=== PATIENT | female | born 1990 | race Caucasian/White ===

== ENCOUNTER 2018-07-21 09:18 | Emergency (ER) | payer OTHER ==
[2018-07-21 09:36] LABS: PH,URINE 8.5 (4.5-8); URINE APPEARANCE Slightly; URINE BILIRUBIN Negative (NEGATIVE); URINE COLOR Yellow; URINE GLUCOSE (UA) Negative (NEGATIVE); URINE KETONE Negative (NEGATIVE); URINE LEUK ESTERASE 2+ (NEGATIVE); URINE NITRITE Negative (NEGATIVE); URINE PROTEIN Negative (NEGATIVE); URINE UROBILINOGEN 0.2 (0.2-1.0)
[2018-07-21 09:40] VITALS: TEMP 97.9
[2018-07-21] MEDS ORDERED: SODIUM CHLORIDE 1,000 ML IV STA (09:44)
[2018-07-21] MEDS ORDERED: KETOROLAC TROMETHAMINE 30 MG/1 ML VIAL IVPUSH ONE (09:44)
[2018-07-21 09:51] LABS: HCG,QUALITATIVE URINE NEGATIVE
--- NOTE | 2018-07-21 09:53 | PDOC ---
History of Present Illness - General Chief Complaint: Back Pain Stated Complaint: lower back pain Time Seen by Provider: 07/21/18 09:23 History Source: Patient Exam Limitations: No Limitations - History of Present Illness Initial Comments: 07/21/18 09:49 27 year old female c/ hx of renal stones presents with Left flank pain since yesterday morning. Noted to have woken up with this intermittent colicky pain in left flank. Associated with urge to urine but denies hematuria, dysuria, urinary frequency. No fevers, chills, nausea, vomiting, diarrhea. Denies vaginal bleeding or discharge. States has not had a period for 6 months given her depo injection. States feels like her previous renal colic. Past History - Past Medical History Allergies/Adverse Reactions: Allergies Allergy/AdvReac Type Severity Reaction Status Date / Time No Known Allergies Allergy Verified 07/21/18 09:19 Home Medications: Ambulatory Orders Naproxen 500 mg PO BID PRN #20 tablet 07/21/18 Tamsulosin HCl [Flomax] 0.4 mg PO DAILY #10 cap.er.24h 07/21/18 COPD: No Other medical history: pt denies - Suicide/Smoking/Psychosocial Hx Smoking History: Never smoked Hx Alcohol Use: No Drug/Substance Use Hx: No Review of Systems - Review of Systems Able to Perform ROS?: Yes Comments:: 07/21/18 09:51 GENERAL/CONSTITUTIONAL: [No fever or chills. No weakness. No weight change.] HEAD, EYES, EARS, NOSE AND THROAT: [No change in vision. No ear pain or discharge. No sore throat.] CARDIOVASCULAR: [No chest pain or shortness of breath.] RESPIRATORY: [No cough, wheezing, or hemoptysis.] GASTROINTESTINAL: [No nausea, vomiting, diarrhea or constipation. No rectal bleeding.] + Left flank pain. GENITOURINARY: [No dysuria, frequency, or change in urination.] MUSCULOSKELETAL: [No joint or muscle swelling or pain. No neck or back pain.] SKIN AND BREASTS: [No rash or easy bruising.] NEUROLOGIC: [No headache, vertigo, loss of consciousness, or loss of sensation.] PSYCHIATRIC: [No depression or anxiety.] ENDOCRINE: [No increased thirst. No abnormal weight change.] HEMATOLOGIC/LYMPHATIC: [No anemia, easy bleeding, or history of blood clots.] ALLERGIC/IMMUNOLOGIC: [No hives or skin allergy. No latex allergy.] *Physical Exam - Vital Signs Last Vital Signs Temp Pulse Resp BP Pulse Ox 97.9 F 78 18 112/78 100 07/21/18 09:19 07/21/18 09:19 07/21/18 09:19 07/21/18 09:19 07/21/18 09:19 - Physical Exam Comments: 07/21/18 09:52 GENERAL: Awake, alert, and fully oriented, in no acute distress HEAD: No signs of trauma EYES: EOMI, sclera anicteric, conjunctiva clear ENT: Auricles normal inspection, hearing grossly normal, nares patent NECK: Normal ROM, supple ABDOMEN: Soft, No guarding, no rebound. No masses. nontender abdomen. + left sided CVA tenderness. EXTREMITIES: Normal range of motion, no edema. No clubbing or cyanosis. No cords, erythema, or tenderness NEUROLOGICAL: Cranial nerves II through XII grossly intact. Normal speech, normal gait SKIN: Warm, Dry, normal turgor, no rashes or lesions noted. Moderate Sedation - Procedure Monitoring Vital Signs: Procedure Monitoring Vital Signs Temperature 97.9 F 07/21/18 09:19 Pulse Rate 78 07/21/18 09:19 Respiratory Rate 18 07/21/18 09:19 Blood Pressure 112/78 07/21/18 09:19 O2 Sat by Pulse Oximetry (%) 100 07/21/18 09:19 ED Treatment Course - LABORATORY CBC & Chemistry Diagram: 07/21/18 09:56 07/21/18 10:45 - ADDITIONAL ORDERS Additional order review: Laboratory Results 07/21/18 09:27 Urine Color Yellow Urine Appearance Slightly Urine pH 8.5 H Ur Specific [place] 1.020 Urine Protein Negative Urine Glucose (UA) Negative Urine Ketones Negative Urine Blood 2+ H Urine Nitrite Negative Urine Bilirubin Negative Urine Urobilinogen 0.2 Ur Leukocyte Esterase 2+ H - RADIOLOGY Radiology Studies Ordered: Category Date Time Status SPIRAL- RENAL-STONE CT [CT] Stat CT Scan 07/21/18 09:48 Ordered Medical Decision Making - Medical Decision Making 07/21/18 09:53 Vital Signs Temp Pulse Resp BP Pulse Ox 97.9 F 78 18 112/78 100 07/21/18 09:19 07/21/18 09:19 07/21/18 09:19 07/21/18 09:19 07/21/18 09:19 Differential: pyelonephritis vs. renal colic. Labs including CBC, CMP, UA/UC, urine test. Spiral CT to r/o kidney stones. NSAIDS, IVF, and reassess. 07/21/18 11:38 CBC, BMP 07/21/18 09:56 07/21/18 10:45 CMP Sodium 139 mmol/L (136-145) 07/21/18 10:45 Potassium 3.6 mmol/L (3.5-5.1) 07/21/18 10:45 Chloride 108 mmol/L (98-107) H 07/21/18 10:45 Carbon Dioxide 25 mmol/L (21-32) 07/21/18 10:45 Anion Gap 6 MMOL/L (8-16) L 07/21/18 10:45 BUN 18 mg/dl (7-18) 07/21/18 10:45 Creatinine 0.6 mg/dl (0.55-1.3) 07/21/18 10:45 Creat Clearance w eGFR > 60 (>60) 07/21/18 10:45 Random Glucose 83 mg/dl (74-106) 07/21/18 10:45 Calcium 8.5 mg/dl (8.5-10) 07/21/18 10:45 Total Bilirubin 0.5 mg/dl (0.2-1) 07/21/18 10:45 AST 20 U/L (15-37) 07/21/18 10:45 ALT 18 U/L (13-61) 07/21/18 10:45 Alkaline Phosphatase 77 U/L (45-117) 07/21/18 10:45 Total Protein 6.5 g/dl (6.4-8.2) 07/21/18 10:45 Albumin 3.6 g/dl (3.4-5.0) 07/21/18 10:45 UA positive for 2+ leuk est, but also with epithelial cells, 20-40 RBCs, 40-[address] demonstrates a 3 mm partially obstructing L renal stone with some mild hydronephrosis. At this time, I don't think that this is an infected renal stone. The patient has no fever, insists that she has no symptoms of UTI. And given no serum elevated WBC and with epithelial cells in urine, I'm inclined to feel that this is renal colic and NOT infected renal stone. Case discussed with Dr. Bazan, who thought that this was reasonable. Will have the patient follow up in his office. Return precautions given i.e. patient develops fever. I discussed the physical exam findings, ancillary test results and final diagnoses with the patient. I answered all of the patient's questions. The patient was satisfied with the care received and felt comfortable with the discharge plan and treatment plan. The patient will call their primary care physician within 24 hours to arrange follow-up and will return to the Emergency Department with any new, persistant or worsening symptoms. *DC/Admit/Observation/Transfer Diagnosis at time of Disposition: Renal colic on left side - Discharge Dispostion Disposition: HOME Condition at time of disposition: Stable Decision to Admit order: No - Prescriptions Prescriptions: Naproxen 500 mg PO BID PRN #20 tablet PRN Reason: Pain Tamsulosin HCl [Flomax] 0.4 mg PO DAILY #10 cap.er.24h - Referrals Referrals: Nigel Bazan MD [Staff Physician] - - Patient Instructions Printed Discharge Instructions: DI for Kidney Stones Additional Instructions: You have a small 3mm kidney stone in the left side. It is in the process of moving. It may take several days before the process is complete. For pain control, take 500 mg naproxen every 12 hours as needed. Please take the flomax daily to help push out the kidney stone. Drink plenty of fluids and rest. Make an appointment with the urologist within the next 2 weeks. If you develop a fever, please return to the ER. - Post Discharge Activity
[2018-07-21] MEDS ORDERED: KETOROLAC TROMETHAMINE 30 MG/1 ML VIAL ONE (09:59)
[2018-07-21 10:10] LABS: HEMATOCRIT 45.2 % (32.4-45.2); HEMOGLOBIN 14.5 GM/dl (10.7-15.3); MCH 29.4 pg (25.7-33.7); MEAN CELL VOLUME 91.8 fl (80-96); MEAN PLT VOLUME 8.6 fl (7.5-11.1); PLATELET COUNT 294 K/MM3 (134-434); RBC 4.93 M/mm3 (3.60-5.2); WHITE BLOOD COUNT 4.7 K/mm3 (4.0-10.8)
[2018-07-21 10:19] LABS: EPI CELLS 4+ /HPF; TRIPLE PHOSPHATE CRYSTAL MODERATE /hpf (NONE SEEN); URINE BACTERIA FEW /hpf (NEGATIVE); URINE RBC 20-40 /hpf (0-3); URINE WBC 40-60 (0-5)
[2018-07-21 11:09] LABS: PLATELET ESTIMATE ADEQUATE
[2018-07-21 11:12] LABS: ALBUMIN 3.6 g/dl (3.4-5.0); ALK PHOS 77 U/L (45-117); ANION GAP 6 MMOL/L (8-16); BILIRUBIN,TOTAL 0.5 mg/dl (0.2-1); BLOOD UREA NITROGEN 18 mg/dl (7-18); CALCIUM 8.5 mg/dl (8.5-10); CHLORIDE 108 mmol/L (98-107); CO2 25 mmol/L (21-32); CREATININE 0.6 mg/dl (0.55-1.3); GLUCOSE,RANDOM 83 mg/dl (74-106); POTASSIUM 3.6 mmol/L (3.5-5.1); SGOT/AST 20 U/L (15-37); SGPT/ALT 18 U/L (13-61); SODIUM 139 mmol/L (136-145); TOT PROT 6.5 g/dl (6.4-8.2)
[2018-07-21] MEDS ORDERED: TAMSULOSIN HCL 0.4 MG CAP PO ONE (11:45)
[2018-07-21] MEDS ORDERED: TAMSULOSIN HCL 0.4 MG CAP ONE (11:51)
[2018-07-21 12:10] VITALS: BP 106/64; PULSE 66
== END 2018-07-21 12:08 | disposition home or self-care (01) ==
LOC: FER 09:18
PROC: 3E0337Z Introduction of Electrolytic and Water Balance Substance into Peripheral Vein, Percutaneous Approach (ICD-10-PCS; principal; 2018-07-21)
PROC: 3E0337Z Introduction of Electrolytic and Water Balance Substance into Peripheral Vein, Percutaneous Approach (ICD-10-PCS; 2018-07-21)
DX: N13.2 Hydronephrosis with renal and ureteral calculous obstruction (principal)
CPT/HCPCS: 36415; 74176; 80053; 81003; 81015; 84703; 85025; 87086; 99282-25; J7030

== ENCOUNTER 2020-07-08 14:37 | Emergency (ER) | payer OTHER | END 2020-07-08 15:13 | disposition home or self-care (01) | LOC: JVIRT 14:37 | DX: Z20.822 Contact with and (suspected) exposure to COVID-19 (principal) | CPT/HCPCS: C9803; G2012-GT; U0003 ==

== ENCOUNTER 2024-01-02 17:45 | Inpatient (IN) | payer OTHER ==
[2024-01-02 18:27] VITALS: BMI 28.3
[2024-01-02 19:11] LABS: BASO % 0.4 % (0-2.0); EOS % 0.7 % (0-4.5); HEMATOCRIT 34.7 % (32.4-45.2); HEMOGLOBIN 11.6 GM/dL (10.7-15.3); LYMPH % 28.4 % (8-40); MCH 29.3 pg (25.7-33.7); MCHC 33.3 g/dl (32.0-36.0); MEAN CELL VOLUME 87.9 fl (80-96); MEAN PLT VOLUME 8.4 fl (7.5-11.1); MONO % 6.1 % (3.8-10.2); NEUT % 64.4 % (42.8-82.8); PLATELET COUNT 251 10^3/uL (134-434); RBC 3.95 M/mm3 (3.60-5.2); RDW 14.9 % (11.6-15.6); WHITE BLOOD COUNT 8.4 K/mm3 (4.0-10.0)
[2024-01-02 19:26] LABS: POTASSIUM 3.9 mmol/L (3.5-5.1)
[2024-01-02 19:27] LABS: BLOOD UREA NITROGEN 6.8 mg/dL (7-18); CALCIUM 8.7 mg/dL (8.5-10.1)
[2024-01-02 19:30] LABS: CREATININE 0.7 mg/dL (0.55-1.3)
[2024-01-02] MEDS: ELECTROLYTE-148 SOLN 1,000 ML IV SCH (19:30)
[2024-01-02] MEDS: MISOPROSTOL 25 MCG TABLET (COMPOUNDED BY PHARMACY) PV ONE (19:55)
[2024-01-02 20:09] LABS: ACTIVATED PTT 26.1 SECONDS (25.2-36.5)
[2024-01-02 20:21] LABS: INR 0.95 (0.83-1.09); PROTHROMBIN TIME (PATIENT) 10.7 SEC (9.7-13.0)
[2024-01-03] MEDS: ELECTROLYTE-148 SOLN 1,000 ML IV SCH
[2024-01-03] MEDS: MISOPROSTOL 25 MCG TABLET (COMPOUNDED BY PHARMACY) BUC ONE (00:20)
[2024-01-03] MEDS: OXYTOCIN 30 UNITS in 0.9% NS 30 UNIT/500 ML INFUS.BAG IVPB SCH (10:00)
[2024-01-03] MEDS ORDERED: BUPIVACAINE HCL/PF 0.25% (2.5MG/ML) 10 ML VIAL ONE (11:00)
[2024-01-03] MEDS ORDERED: FENTANYL/BUPIVACAINE/NS/PF - PCEA - 50 ML DISP.SYRIN EP ONE (11:00)
[2024-01-03] MEDS: FENTANYL/BUPIVACAINE/NS/PF - PCEA - 50 ML DISP.SYRIN EP SCH ×2 (11:15→14:06)
[2024-01-03] MEDS ORDERED: NALOXONE HCL 0.4 MG/ML VIAL IVPUSH PRN (11:32)
[2024-01-03 12:08] LABS: INR 0.94 (0.83-1.09); PROTHROMBIN TIME (PATIENT) 10.8 SEC (9.7-13.0)
[2024-01-03 12:09] LABS: BASO % 0.6 % (0-2.0); EOS % 0.6 % (0-4.5); HEMATOCRIT 34.5 % (32.4-45.2); HEMOGLOBIN 11.4 GM/dL (10.7-15.3); LYMPH % 26.5 % (8-40); MCH 29.1 pg (25.7-33.7); MCHC 33.1 g/dl (32.0-36.0); MEAN CELL VOLUME 87.9 fl (80-96); MEAN PLT VOLUME 8.9 fl (7.5-11.1); MONO % 6.8 % (3.8-10.2); NEUT % 65.5 % (42.8-82.8); PLATELET COUNT 235 10^3/uL (134-434); RBC 3.92 M/mm3 (3.60-5.2); RDW 14.6 % (11.6-15.6); WHITE BLOOD COUNT 9.1 K/mm3 (4.0-10.0)
[2024-01-03 12:11] LABS: ACTIVATED PTT 23.8 SECONDS (25.2-36.5)
[2024-01-03 12:24] LABS: POTASSIUM 3.9 mmol/L (3.5-5.1)
[2024-01-03 12:29] LABS: CALCIUM 7.9 mg/dL (8.5-10.1)
[2024-01-03 12:30] LABS: BLOOD UREA NITROGEN 4.3 mg/dL (7-18)
[2024-01-03 12:33] LABS: CREATININE 0.4 mg/dL (0.55-1.3)
[2024-01-03] MEDS ORDERED: BISACODYL 10 MG SUPP.RECT RC PRN (13:42)
[2024-01-03] MEDS ORDERED: ACETAMINOPHEN 325 MG TABLET (FP) PO PRN (13:42)
[2024-01-03] MEDS ORDERED: WITCH HAZEL 50% (TUCKS) 40 PAD/JAR PAD TP PRN (13:42)
[2024-01-03] MEDS ORDERED: BENZOCAINE 20% 57 GM BOTTLE TP PRN (13:42)
[2024-01-03] MEDS ORDERED: METHYLERGONOVINE MALEATE 0.2 MG/1 ML AMP IM PRN (13:42)
[2024-01-03] MEDS ORDERED: BENZOCAINE 28 GM HEMORRHOIDAL OINTMENT TP PRN (13:42)
[2024-01-03] MEDS: OXYTOCIN 20 UNITS in 0.9% NS 20 UNIT/1,000 ML INFUS.BAG IV SCH (13:50)
[2024-01-03] MEDS ORDERED: IBUPROFEN 600 MG TABLET (FP) PO ONE (15:08)
[2024-01-03] MEDS: IBUPROFEN 600 MG TABLET (FP) PO PRN (15:10)
[2024-01-03 16:10] VITALS: RESP 18
[2024-01-03] MEDS: oxyCODONE HCL 5 MG TABLET PO PRN (22:18)
[2024-01-04 08:40] LABS: BASO % 0.4 % (0-2.0); EOS % 1.2 % (0-4.5); HEMATOCRIT 29.7 % (32.4-45.2); LYMPH % 20.1 % (8-40); MCHC 33.8 g/dl (32.0-36.0); MEAN CELL VOLUME 88.6 fl (80-96); MEAN PLT VOLUME 8.7 fl (7.5-11.1); MONO % 5.3 % (3.8-10.2); PLATELET COUNT 200 10^3/uL (134-434); RBC 3.36 M/mm3 (3.60-5.2); RDW 14.6 % (11.6-15.6); WHITE BLOOD COUNT 11.1 K/mm3 (4.0-10.0)
[2024-01-04] MEDS: FERROUS SO4 325 MG TABLET (FP) PO SCH (09:46)
[2024-01-04] MEDS: PRENATAL VITAMINS W/ FOLIC ACID TABLET (FP) PO SCH (09:46)
[2024-01-04] MEDS: SENNOSIDES/DOCUSATE COMBO (SENNA PLUS) TABLET (UD) PO PRN (22:33)
[2024-01-05 08:52] VITALS: BP 104/71; PULSE 78; TEMP 98
== END 2024-01-05 13:00 | disposition home or self-care (01) | DRG 807 ==
LOC: JLDR 17:45 → J3W 01-03 15:40
PROVIDERS: ADMIT Obstetrics & Gynecology; ATTEND Obstetrics & Gynecology
PROC: 10E0XZZ Delivery of Products of Conception, External Approach (ICD-10-PCS; principal; 2024-01-03)
PROC: 3E0P7VZ Introduction of Hormone into Female Reproductive, Via Natural or Artificial Opening (ICD-10-PCS; 2024-01-03)
PROC: 10907ZC Drainage of Amniotic Fluid, Therapeutic from Products of Conception, Via Natural or Artificial Opening (ICD-10-PCS; 2024-01-03)
PROC: 3E033VJ Introduction of Other Hormone into Peripheral Vein, Percutaneous Approach (ICD-10-PCS; 2024-01-03)
PROC: 0W8NXZZ Division of Female Perineum, External Approach (ICD-10-PCS; 2024-01-03)
DX: O41.03X0 Oligohydramnios, third trimester, not applicable or unspecified (principal); Z37.0 Single live birth; Z3A.39 39 weeks gestation of pregnancy
CPT/HCPCS: 36415; 59409; 80048; 85025; 85610; 85730; 86762; 86780; 86850; 86900; 86901; 87340